=== PATIENT | male | born 1975 | race Caucasian/White ===

== ENCOUNTER 2022-12-12 08:39 | Day surgery (SDC) | payer BC, OTHER ==
[2022-12-11 09:16] VITALS: BMI 26.9
[~2022-12-12 08:39] MED LIST: LIDOCAINE 1% (10MG/ML) FOR IV START INTRADERMA PRN
[2022-12-12 09:13] VITALS: RESP 16; TEMP 97
[2022-12-12] MEDS: LACTATED RINGERS 1,000 ML IV SCH ×2 (09:15→09:18)
[2022-12-12] MEDS ORDERED: PROPOFOL 10 MG/ML 20 ML VIAL IV ONE (09:21)
--- NOTE | 2022-12-12 09:24 | P.GSHP ---
History of Present Illness H&P Date: 12/12/22 Chief Complaint: GI bleed Some 46-year-old male with complaints of GI bleed. Patient presents today for colonoscopy. Past Medical History Past Medical History: No Reported History Additional Past Medical History / Comment(s): anxiety History of Any Multi-Drug Resistant Organisms: None Reported Past Surgical History: Ear Surgery, Orthopedic Surgery Additional Past Surgical History / Comment(s): shoulder left titanium collarbone Additional Past Anesthesia/Blood Transfusion Reaction / Comment(s): no blood transfusion Smoking Status: Current every day smoker - Past Family History Brother(s) Family Medical History: Cancer Additional Family Medical History / Comment(s): skin cancer Medications and Allergies Home Medications Medication Instructions Recorded Confirmed Type ALPRAZolam [Xanax] 0.25 mg PO HS PRN 12/11/22 12/12/22 History Allergies Allergy/AdvReac Type Severity Reaction Status Date / Time No Known Allergies Allergy Verified 12/12/22 08:59 Surgical - Exam Vital Signs Temp Pulse Resp BP Pulse Ox 97 F L 62 16 123/79 97 12/12/22 09:09 12/12/22 09:09 12/12/22 09:09 12/12/22 09:09 12/12/22 09:09 - General well developed, well nourished - Eyes PERRL - ENT normal pinna - Neck no masses - Respiratory normal expansion - Cardiovascular Rhythm: regular - Abdomen Abdomen: soft, non tender Assessment and Plan Assessment: GI bleed. We'll perform colonoscopy
--- NOTE | 2022-12-12 09:39 | P.OP ---
Date of Procedure: 12/12/22 Preoperative Diagnosis: GI bleed Postoperative Diagnosis: External hemorrhoids Procedure(s) Performed: Colonoscopy Anesthesia: MAC Surgeon: Yoav Morales Pathology: none sent Condition: stable Disposition: PACU Description of Procedure: The patient's placed on the endoscopy table in the lateral position. He received IV sedation. The digital rectal exam was performed. There external hemorrhoids noted. The flexible colonoscope was then placed patient anus passed rotator colon. The ileocecal valve was visualized. Cecum, ascending and transverse colon appeared normal. In the descending and; a few scattered diverticuli. Scope was brought back the rectum this appeared normal. Scope was drawn to anus and external hemorrhoids are noted. Scope was withdrawn for patient.
[2022-12-12 10:19] VITALS: BP 116/79; PULSE 72
== END 2022-12-12 10:12 | disposition home or self-care (01) ==
LOC: ORWHC2ENDO 08:39
PROVIDERS: ATTEND Surgery
DX: K64.4 Residual hemorrhoidal skin tags (principal); K92.2 Gastrointestinal hemorrhage, unspecified; F17.200 Nicotine dependence, unspecified, uncomplicated; F41.9 Anxiety disorder, unspecified; Z79.899 Other long term (current) drug therapy
CPT/HCPCS: 45378; J2704

== ENCOUNTER 2023-01-06 05:53 | Day surgery (SDC) | payer OTHER ==
[~2023-01-06 05:53] MED LIST changes: +ACETAMINOPHEN TAB 500 MG TAB PO PRN; +DEXAMETHASONE SOD PHOSPHATE 4 MG/ML 1 ML VIAL IV ONE; +HEPARIN SODIUM,PORCINE/PF 5,000 UNIT/0.5 ML SYRINGE SQ PRN; +HYDROmorphone 0.5 MG/0.5 ML SYRINGE IVP PRN; +LACTATED RINGERS 1,000 ML IV SCH; +ONDANSETRON 4 MG/2 ML VIAL IVP ONE; +Pre Op ABX Message 1 EACH MISC MISCELLANE ONE; +droPERidol 5 MG/2 ML VIAL IVP PRN
[2023-01-06 06:26] VITALS: TEMP 97.7
[2023-01-06] MEDS ORDERED: BUPIVACAINE (PF) 0.25% 30 ML VIAL SQ ONE (07:18)
[2023-01-06] MEDS ORDERED: LIDOCAINE 1% INJ 10MG/ML (20 ML MDV) ONE (07:25)
[2023-01-06] MEDS ORDERED: PROPOFOL 10 MG/ML 20 ML VIAL IV ONE (07:25)
[2023-01-06] MEDS ORDERED: HYDROmorphone (PF) 1 MG/ML ONE (07:25)
[2023-01-06] MEDS ORDERED: fentaNYL (PF) 50 MCG/ML 2 ML AMP ONE (07:25)
[2023-01-06] MEDS ORDERED: SUCCINYLCHOLINE CHLORIDE 200 MG/10 ML VIAL IV ONE (07:25)
[2023-01-06] MEDS ORDERED: MIDAZOLAM 2 MG/2 ML VIAL ONE (07:25)
[2023-01-06] MEDS ORDERED: GELATIN SPONGE,ABSORB (LARGE) 1 EACH SPONGE TOPICAL ONE (07:55)
[2023-01-06] MEDS ORDERED: LIDOCAINE 0.5%-EPI 1:200,000 50 ML VIAL SQ ONE ×2 (07:57)
--- NOTE | 2023-01-06 08:11 | P.OP ---
Date of Procedure: 01/06/23 Preoperative Diagnosis: Internal and external hemorrhoids Postoperative Diagnosis: Internal and external hemorrhoids Procedure(s) Performed: Internal and external hemorrhoidectomy Anesthesia: FLORECITA Surgeon: Yoav Morales Estimated Blood Loss (ml): 5 Pathology: other (Internal and external hemorrhoids) Condition: stable Disposition: PACU Description of Procedure: The patient's placed on the operative table in the supine position. He received general endotracheal tube anesthesia. The patient then placed in the prone jackknife position. His anus was prepped and draped usual sterile fashion. The patient had 2 large hemorrhoidal columns. The left lateral hemorrhoidal column was then visualized. The anal retractors placed and anus. And then the hemorrhoidal columns grasper Allis clips. Using the Harmonic scissors the hematocrit was performed. Next the right posterior hemorrhoidal column was grasped with a pair of Allis clips removed identical fashion. The bulging status. There is no bleeding seen. The anus was packed with Gelfoam. The anus was then injected with 1% local Xylocaine with epinephrine. Patient top she will well he was sent to recovery room in stable condition.
[2023-01-06 09:27] VITALS: BP 125/69; PULSE 68; RESP 20
== END 2023-01-06 09:23 | disposition home or self-care (01) ==
LOC: OR 05:53
PROVIDERS: ATTEND Surgery
DX: K64.8 Other hemorrhoids (principal); K64.4 Residual hemorrhoidal skin tags; Z87.891 Personal history of nicotine dependence; Z98.890 Other specified postprocedural states; Z79.899 Other long term (current) drug therapy
CPT/HCPCS: 46260; J2250; J0330; J1100; J2405; J2001; J3010; J1170; J2704; J1644; 88304